=== PATIENT | male | born 1955 | race African-American/Black ===

== ENCOUNTER 2017-07-06 06:05 | Emergency (ER) | payer MEDICAID ==
[~2017-07-06] VITALS: Ht 175.3 cm; Wt 85.4 kg
[2017-07-06] MEDS ORDERED: KETOROLAC 60MG/2ML VIAL IM ONE (07:45)
[2017-07-06 07:56] VITALS: BP 138/82
== END 2017-07-06 09:42 | disposition home or self-care (01) ==
LOC: ER 06:05
DX: M54.2 Cervicalgia (principal); F12.10 Cannabis abuse, uncomplicated; Y32.XXXA Crashing of motor vehicle, undetermined intent, initial encounter; Y93.89 Activity, other specified; Y92.89 Other specified places as the place of occurrence of the external cause; Y99.8 Other external cause status
CPT/HCPCS: 96372; 99283; J1885; Z7610

== ENCOUNTER 2017-07-17 03:40 | Emergency (ER) | payer MEDICAID ==
[~2017-07-17] VITALS: Ht 172.7 cm; Wt 85.0 kg
[2017-07-17] MEDS ORDERED: IBUPROFEN 600MG TABLET PO ONE (04:15)
[2017-07-17] MEDS ORDERED: SODIUM CHLORIDE 0.9% 1,000 ML IV ONE (05:11)
[2017-07-17] MEDS ORDERED: KETOROLAC 15MG/ML VIAL IV ONE (05:30)
[2017-07-17 05:31] LABS: BASOPHILS % 1.4 % (0.0-2.0); EOSINOPHILS % 5.5 % (0.0-5.0); HEMATOCRIT. 44.8 % (42.0-52.0); LYMPHOCYTES % 43.8 % (20.0-50.0); MEAN CORPUSCULAR HEMOGLOBIN 31.9 pg (28.0-32.0); MEAN CORPUSCULAR VOLUME 95.1 fL (80.0-94.0); MEAN PLATELET VOLUME 9.3 fl (7.4-10.4); MONOCYTES % 10.4 % (2.0-8.0); NEUTROPHILS % 38.9 % (40.0-76.0); PLATELET 123 x1000/uL (130-400); RED BLOOD CELL COUNT 4.72 mill/uL (4.7-6.1); RED CELL DISTRIBUTION WIDTH 13.1 % (11.6-14.6)
[2017-07-17 05:56] LABS: CARBON DIOXIDE 30 mEq/L (21-32); CHLORIDE 107 mEq/L (98-107)
[2017-07-17] MEDS ORDERED: IOHEXOL-300 100 ML BOTTLE ONE (06:20)
[2017-07-17 07:58] VITALS: BP 124/77
== END 2017-07-17 08:08 | disposition home or self-care (01) ==
LOC: ER 04:13
DX: S20.219S Contusion of unspecified front wall of thorax, sequela (principal); F17.210 Nicotine dependence, cigarettes, uncomplicated; Z89.431 Acquired absence of right foot; V43.52XS Car driver injured in collision with other type car in traffic accident, sequela
CPT/HCPCS: 36415; 71010; 71260; 80053; 85025; 96361; 96374; 99285; J1885; J7030; Q9967; Z7610

== ENCOUNTER 2019-08-05 04:38 | Emergency (ER) | payer MEDICARE, MEDICAID ==
[~2019-08-05] VITALS: Ht 172.7 cm; Wt 91.0 kg
[2019-08-05 07:17] VITALS: BP 124/74
== END 2019-08-05 07:18 | disposition home or self-care (01) ==
LOC: ER 04:38
DX: T87.89 Other complications of amputation stump (principal); M79.661 Pain in right lower leg; Y83.8 Other surgical procedures as the cause of abnormal reaction of the patient, or of later complication, without mention of misadventure at the time of the procedure; Y92.018 Other place in single-family (private) house as the place of occurrence of the external cause
CPT/HCPCS: 99282

== ENCOUNTER 2020-04-29 12:47 | Emergency (ER) | payer BC, MEDICAID ==
[~2020-04-29] VITALS: Ht 172.7 cm; Wt 87.0 kg
[2020-04-29] MEDS ORDERED: ACETAMINOPHEN 325MG TABLET PO STA (13:13)
[2020-04-29 15:06] LABS: BASOPHILS % 1.1 % (0.0-2.0); EOSINOPHILS % 5.3 % (0.0-5.0); HEMATOCRIT. 43.8 % (42.0-52.0); HEMOGLOBIN. 14.9 g/dL (14.0-18.0); LYMPHOCYTES % 35.5 % (20.0-50.0); MEAN CORPUSCULAR HEMOGLOBIN 32.8 pg (28.0-32.0); MEAN CORPUSCULAR VOLUME 96.6 fL (80.0-94.0); MONOCYTES % 8.3 % (2.0-8.0); NEUTROPHILS % 49.8 % (40.0-76.0); PLATELET 136 x1000/uL (130-400); RED BLOOD CELL COUNT 4.54 mill/uL (4.7-6.1); RED CELL DISTRIBUTION WIDTH 12.8 % (11.6-14.6)
[2020-04-29 15:12] LABS: PROTHROMBIN TIME 10.9 sec (9.6-11.0)
[2020-04-29 15:13] LABS: CHLORIDE 106 mEq/L (98-107)
[2020-04-29 15:47] VITALS: BP 132/65
== END 2020-04-29 15:50 | disposition home or self-care (01) ==
LOC: ER 12:47
DX: R51 Headache (principal)
CPT/HCPCS: 36415; 80053; 85025; 93005; 99285

== ENCOUNTER 2020-09-18 04:47 | Emergency (ER) | payer MEDICARE, MEDICAID ==
[~2020-09-18] VITALS: Ht 172.7 cm; Wt 85.4 kg
[2020-09-18] MEDS ORDERED: HYDROCODONE/ACETAMINOPHEN 5/325MG TABLET PO ONE (06:30)
[2020-09-18 07:34] VITALS: BP 121/75
== END 2020-09-18 07:40 | disposition home or self-care (01) ==
LOC: ER 04:47
DX: S90.821A Blister (nonthermal), right foot, initial encounter (principal); S63.502A Unspecified sprain of left wrist, initial encounter; Z96.641 Presence of right artificial hip joint; Z98.890 Other specified postprocedural states; X58.XXXA Exposure to other specified factors, initial encounter; Y93.89 Activity, other specified; Y92.89 Other specified places as the place of occurrence of the external cause; Y99.8 Other external cause status
CPT/HCPCS: 29125; 73110; 99283

== ENCOUNTER 2020-10-05 03:34 | Emergency (ER) | payer MEDICARE, MEDICAID ==
[~2020-10-05] VITALS: Ht 175.3 cm; Wt 86.0 kg
[2020-10-05] MEDS ORDERED: KETOROLAC 60MG/2ML VIAL IM STA (04:43)
[2020-10-05 05:04] VITALS: BP 146/89
[2020-10-05 05:20] LABS: BASOPHILS % 0.8 % (0.0-2.0); EOSINOPHILS % 8.3 % (0.0-5.0); HEMOGLOBIN. 15.9 g/dL (14.0-18.0); LYMPHOCYTES % 44.7 % (20.0-50.0); MEAN CORPUSCULAR HEMOGLOBIN 31.9 pg (28.0-32.0); MEAN PLATELET VOLUME 9.3 fl (7.4-10.4); NEUTROPHILS % 39.2 % (40.0-76.0); PLATELET 173 x1000/uL (130-400); RED CELL DISTRIBUTION WIDTH 12.9 % (11.6-14.6)
[2020-10-05 05:26] LABS: CHLORIDE 107 mEq/L (98-107)
[2020-10-05 05:32] LABS: C REACTIVE PROTEIN QUANT 4.6 mg/L (0.0-3.0)
[2020-10-05] MEDS ORDERED: IBUP-2028 MT (06:51)
[2020-10-05] MEDS ORDERED: OXYC-100 MT (06:51)
== END 2020-10-05 07:06 | disposition home or self-care (01) ==
LOC: ER 03:34
DX: M79.671 Pain in right foot (principal); Z89.431 Acquired absence of right foot
CPT/HCPCS: 36415; 73620; 80053; 83605; 85025; 85651; 86140; 96372; 99284; J1885

== ENCOUNTER 2021-06-08 01:17 | Emergency (ER) | payer MEDICARE, MEDICAID ==
[~2021-06-08] VITALS: Ht 175.3 cm; Wt 96.0 kg
[~2021-06-08 01:17] MED LIST: IBUP-2028 MT; OXYC-100 MT
[2021-06-08] MEDS ORDERED: IBUPROFEN 400MG TABLET PO ONE (04:45)
[2021-06-08] MEDS ORDERED: ACETAMINOPHEN 325MG TABLET PO ONE (04:45)
[2021-06-08] MEDS ORDERED: TOPUD MT (06:02)
[2021-06-08 07:05] VITALS: BP 148/72
== END 2021-06-08 07:06 | disposition home or self-care (01) ==
LOC: ER 01:17
DX: M79.671 Pain in right foot (principal)
CPT/HCPCS: 73630; 99283

== ENCOUNTER 2022-03-15 08:09 | Emergency (ER) | payer MEDICARE, MEDICAID ==
[~2022-03-15] VITALS: Ht 170.2 cm; Wt 86.0 kg
[~2022-03-15 08:09] MED LIST changes: +TOPUD MT
[2022-03-15 08:17] VITALS: BP 151/81
[2022-03-15] MEDS ORDERED: ACETAMINOPHEN 325MG TABLET PO STA (08:37)
[2022-03-15] MEDS ORDERED: IBUP-2028 MT (09:48)
== END 2022-03-15 10:10 | disposition home or self-care (01) ==
LOC: ER 08:09
DX: R51.9 Headache, unspecified (principal); F17.200 Nicotine dependence, unspecified, uncomplicated
CPT/HCPCS: 99284

== ENCOUNTER 2022-04-25 01:58 | Emergency (ER) | payer OTHER, MEDICAID ==
[~2022-04-25] VITALS: Ht 172.7 cm; Wt 84.1 kg
[2022-04-25 02:00] VITALS: BP 119/74
[2022-04-25] MEDS ORDERED: NAPR-1176 MT (02:57)
== END 2022-04-25 03:15 | disposition home or self-care (01) ==
LOC: ER 01:58
DX: S63.692A Other sprain of right middle finger, initial encounter (principal); W23.0XXA Caught, crushed, jammed, or pinched between moving objects, initial encounter; X58.XXXA Exposure to other specified factors, initial encounter; Y93.89 Activity, other specified; Y92.89 Other specified places as the place of occurrence of the external cause
CPT/HCPCS: 73120; 99283

== ENCOUNTER 2024-05-03 11:09 | Emergency (ER) | payer MEDICAID, OTHER ==
[~2024-05-03] VITALS: Ht 170.2 cm; Wt 85.9 kg
[~2024-05-03 11:09] MED LIST changes: +NAPR-1176 MT
[2024-05-03 11:26] VITALS: BP 171/67; PULSE 47; RESP 18; TEMP 98.2; O2SAT 100
== END 2024-05-03 12:42 | disposition home or self-care (01) ==
LOC: ER 11:09
DX: R51.9 Headache, unspecified (principal)
CPT/HCPCS: 99281

== ENCOUNTER 2025-01-11 00:22 | Emergency (ER) | payer OTHER, MEDICAID ==
[~2025-01-11] VITALS: Ht 170.2 cm; Wt 80.2 kg
[2025-01-11 00:42] VITALS: O2SAT 100
[2025-01-11 01:21] VITALS: BP 148/68; PULSE 66; RESP 16; TEMP 36.7; O2SAT 100
== END 2025-01-11 02:36 | disposition left against medical advice (07) ==
LOC: ER 01:27
DX: M25.531 Pain in right wrist (principal); Z65.3 Problems related to other legal circumstances; Z79.1 Long term (current) use of non-steroidal anti-inflammatories (NSAID)
CPT/HCPCS: 99281